=== PATIENT | female | born 1970 ===

== ENCOUNTER 2023-06-01 04:30 | Day surgery (SDC) | payer OTHER ==
[2023-05-27 13:43] VITALS: BMI 28.5
[2023-06-01] MEDS ORDERED: MIDAZOLAM HCL 2 MG/2 ML SINGLE DOSE VIAL ONE (13:41)
[2023-06-01 14:34] VITALS: RESP 18; TEMP 97.7
[2023-06-01 15:54] VITALS: BP 142/75; PULSE 68
== END 2023-06-01 15:45 | disposition home or self-care (01) ==
LOC: JASU-SURG 04:30
PROVIDERS: ATTEND Urology
PROC: 0TF3XZZ Fragmentation in Right Kidney Pelvis, External Approach (ICD-10-PCS; principal; 2023-06-01 13:00)
DX: N20.0 Calculus of kidney (principal)
CPT/HCPCS: 81025